=== PATIENT | female | born 1980 | race Caucasian/White ===

== ENCOUNTER 2024-07-17 15:26 | Emergency (ER) | payer OTHER, SELFPAY ==
--- OUTSIDE RECORDS SUMMARY | 2024-07-17 15:27 | XMS_ITS | Clinical Summary ---
Author Organization [facility] Address [address] [place] [id number] Care Team Providers Care Continuous Mining Operator Name Role Phone Shayy Sullivan MD Primary Care Provider [phone] Allergies No known active allergies Medications escitalopram oxalate 20 mg tabletIndicatio ns:Anxiety TAKE 1 TABLET BY MOUTH EVERY DAY 90 Tablet 5 Active escitalopram oxalate (LEXAPRO) 20 mg tabletIndicatio ns:Anxiety Take 1 Tablet (20 mg) by mouth once daily. 90 Tablet 3 4 07/09/19 25 Discontinued Active Problems Problem Noted Date Diagnosed Date Anxiety 06/13/2020 Gastroesophageal reflux disease without esophagi tis 09/13/2016 Overview (09/13/2016): EGD 09/2016 normal Papanicolaou smear of cervix with atypical squamous cells cannot exclude high grade squamous intraepithelial lesion (ASC-H) 01/24/2014 Overview (06/13/2020): 01/2014 Pap Ascus-H, plan: colp 02/08/14 [place] done-neg, per DR. Carver, pt. To have co-testing in on year, 02/201502/28/16 Reminder letter sent to pt. To schedule a repeat pap and HPV screening. 06/28/15 I spoke with pt., she states that she has had an insurance change, will not be coming back to [facility] for her care. Encounters Date Type Department Care Team Description 07/07/2024 Refill [facility] [address] [place] [address] Shayy Sullivan MD Refill Request (Escitalopram Oxalate) from Last 3 Months Immunizations Immunization Administration Dates Next Due AMB Influenza, IIV4 PF (=>6 mos Flulaval,Fluzone Fluarix)(Flu Clinic Only) 01/31/2014 Influenza A (H1N1), Inactivated 01/31/2009 Influenza, IIV3 (Age >=3 years) 04/16/2012,12/13 Influenza, IIV4 04/24/2017,01/31/2014 Tdap 05/19/2018 Family History Medical History Relation Name Comments Good Health Brother Hodgkin's lymphoma Father Good Health Mother Good Health Sister Relation Name Status Comments Brother Father Alive Mother Alive Sister Social History Tobacco Use Types Packs/Day Years Used Date Smoking Tobacco: Former Cigarettes Smokeless Tobacco: Never Tobacco Cessation:Counseling Given: Yes Comments:Smoking History Packs/day: 0.5 Alcohol Use Standard Drinks/Week Comments Not Currently 4 (1 standard drink = 0.6 oz pur e alcohol) week PHQ-2 Answer Date Recorded PHQ-2 TOTAL SCORE 0 05/01/2023 Social Connections Answer Date Recorded Frequency of Communication with Friends and Fami ly Not on file 04/07/2021 Financial Resource Strain Answer Date R ecorded Difficulty of Paying Living Expenses Not on file 04/07/2021 Difficulty of Paying Living Expenses Not on file 04/07/2021 Comments No Sex and Gender Information Value Date Recorded Sex Assigned at Not on file Legal Sex Female 6:58 AM OCCUPATIONAL HEALTH NURSE MANAGER Gender Identity Not on file Sexual Orientation Not on file Obstetrics History Last Filed Vital Signs Vital Sign Reading Time Taken Comments Blood Pressure 110/74 07/16/2023 4:05 PM CDT Pulse 83 07/16/2023 4:05 PM CDT Temperature 36.8 C (98.3 F) 07/16/2023 4:05 PM CDT Respiratory Rate 20 02/29/2020 12:52 PM OCCUPATIONAL HEALTH NURSE MANAGER Oxygen Saturation 97% 07/16/2023 4:05 PM CDT Inhaled Oxygen Concentration - - Weight 55.4 kg (122 lb 3.2 oz) 07/16/2023 4:05 P M CDT Height 161 cm (5' 3.39) 07/16/2023 4:05 PM CDT Body Mass Index 21.38 07/16/2023 4:05 PM CDT Plan of Treatment Health Maintenance Due Date Last Done Comments HIV for age 15-65 1995 Hepatitis C screening for age 18-79 1998 COVID-19 vaccine series ( season) 2023 03/26/2021 Depression screening for age 12+ 05/01/2024 05/01/2023, 12/28/2021, 08/06/2021, Additional history exists BMI (ht and wt on same day) for age 18+ 07/15/2024 07/16/2023, 02/16/2020, 01/19/2020, Additional history exists Influenza Vaccine (Season Ended) 2024 04/24/2017, 01/31/2014, 01/31/2014, Additional history exists Pap test for age 21-65 11/22/2026 2 (Verified in Care Everywhere or Patient Record), 05/19/2018 (Verified in Care Everywhere or Patient Record), 08/10/2015 (Completed outside of [facility]), Additional history exists Tetanus booster 05/19/2028 05/19/2018 Tdap Completed 05/19/2018 Pneumococcal series for age 6-49 Aged Out No longer eligible based on patient's age to complete this topic Procedures Procedure Name Priority Date/Time Associated Diagnosis Comments CLINICAL NURSE SPECIALIST THIN PREP PAP SCREEN IMAGED Routine 04/10/2012 2:53 PM OCCUPATIONAL HEALTH NURSE MANAGER Screening for malignant neoplasm of the cervix from Last 3 Months or Most Recently Relevant to Health Maintenance Results * CLINICAL NURSE SPECIALIST THIN PREP PAP SCREEN IMAGED (04/10/2012 2:53 PM OCCUPATIONAL HEALTH NURSE MANAGER) CYTOLOGY CYTOPATHOLOGY REPORT [facility] Status: Final Status [id number] CLINICAL INFORMATION Last Date of LMP :2012 Last Pap Date :4 years ago Last Pap Result :NIL ABN [place]/Bx Past 5 YRS :None Hormone Usage :BCP/OCP/Patch/Rin g Menstrual Status :Regular Periods [place]/Bx done today :No Additional Information :None given HPV Request :HPV if ASCUS SPECIMEN SOURCE :Cervical/vaginal ThinPrep Vial, screening SPECIMEN ADEQUACY :Satisfactory for evaluation Endocervical component present. INTERPRETATION/RES ULT Negative for intraepithelial lesion or malignancy (NIL) Cytology 1st Screener :sadaf Signed by :sadaf This specimen was screened by the FDA approved ThinPrep Imaging System and manually reviewed. NOTE: The Pap test is a screening technique, not a diagnostic procedure. It is used primarily to screen for squamous cancers and precursor lesions. Published studies have shown that it is subject to both false negative and false positive results. The pap test should not be used as the sole means to diagnose or exclude pre-malignant and malignant lesions. COLLECTED:04/10/12 ACCESSIONED: 04/11/12 SIGNED: 04/17/12 [facility] PAP [place] CODE NIL [facility] Tissue specimen (specimen) (Cervical/Vagina l) 04/10/2012 2:53 PM OCCUPATIONAL HEALTH NURSE MANAGER 04/10/2012 2:45 PM OCCUPATIONAL HEALTH NURSE MANAGER us Matilde LOCO PATHOLOGY/CYTOLOGY Татьяна l Result [facility] INTERNAL ZIP [id number] [place] [id number] from Last 3 Months or Most Recently Relevant to Health Maintenance Advance Directives * Full Code (Latest Code Status on File) Date Activated Date Inactivated Comments 11/01/2015 9:56 AM 11/01/2015 1:40 PM Care Teams Continuous Mining Operator Relationship Specialty Start Date End Date Shayy Sullivan MD [address] [place] [address] PCP - General Family Practice 06/08/20
[2024-07-17 15:42] VITALS: BP 117/81; PULSE 90; RESP 14; TEMP 36.9; O2SAT 97
--- NOTE | 2024-07-17 16:20 | CRLHL7_ITS ---
For Patients: As a result of the Century Cures Act, medical imaging exams and procedure reports are released immediately into your electronic medical record. You may view this report before your referring provider. If you have questions, please contact your health care provider. Indication: Periumbilical abdominal pain Technique: Volumetric multidetector CT images of the abdomen and pelvis were obtained after the administration of intravenous contrast. 58 cc Isovue 370 low osmolar intravenous contrast Comparison: None available. Findings: The lung bases are clear. The liver is normal in attenuation without intrahepatic biliary ductal dilatation. The portal vein is patent. There is a contracted appearance of the gallbladder. There is no significant common biliary ductal dilatation or abrupt cut off. The spleen is normal in enhancement and size. The stomach and duodenum are grossly unremarkable. The pancreas is normal in enhancement without significant atrophy. The adrenal glands are unremarkable. The kidneys demonstrate preserved corticomedullary differentiation without evidence of obstructive uropathy. There is extensive fluid seen within the central small bowel with mucosal hyperemia. There is marked thickening and pericolonic inflammation of the cecum, ascending colon and proximal transverse colon. The appendix is unremarkable. There is no significant mesenteric, retroperitoneal, or pelvic sidewall lymph nodes. The aorta is nonaneurysmal. There is no significant atherosclerotic disease appreciated. There is an IUD in satisfactory position. There is minimal reactive fluid tracking along the right pericolic gutter. The anterior abdominal wall is intact without significant hernias. The lumbar vertebral body heights are grossly maintained with small disc protrusions at the L3-L4 and L4-L5 levels. Impression: 1. Marked thickening and pericolonic inflammatory change of the cecum, ascending colon and proximal transverse colon with minimal fluid tracking along the pericolic gutter and moderate fluid distention of the mid small bowel likely representing developing infectious or inflammatory enterocolitis. 2. Normal appendix. Please note that all CT scans at this facility use dose modulation, iterative reconstruction, and/or weight-based dosing when appropriate to reduce radiation dose to as low as reasonably achievable. Dictated by Julio Johnson MD @ 07/17/2024 5:36:32 PM (Electronically Signed)
[2024-07-17 16:23] LABS: Appearance Urine Clear (Clear); Bilirubin Urine Negative (Negative); Blood Urine Negative (Negative); Color Urine Yellow (Yellow); Glucose Urine Negative (Negative); Ketones Urine Negative (Negative); Leukocyte Esterase Urine Negative (Negative); Nitrite Urine Negative (Negative); Protein Urine Negative (Negative); Urobilinogen Urine 0.2 (0.2-1.0); pH Urine 6.5 (5.0-8.5)
--- NOTE | 2024-07-17 16:23 | ED.ABDPAIN ---
HPI - Abdominal Pain General Date Seen: 07/17/24 Chief Complaint: Abdominal Pain Stated Complaint: Potential Hernia Time Seen by Provider: 07/17/24 16:04 Source: patient Mode of arrival: ambulatory Limitations: no limitations History of Present Illness HPI narrative: Patient is a 44-year-old female with no pertinent medical problems presenting to the emergency department for abdominal pain. She states she 1st noticed symptoms a couple days ago and she at that time had some diarrhea and a fever. The fever has since resolved and she has had no further diarrhea. She continues to have abdominal cramping worsening periumbilical and lower abdomen but seems to be quite diffuse she states. Has not had any previous abdominal surgeries. Has also noticed a bulge that comes in and out right above her umbilicus. She was concerned this could be a hernia causing her symptoms. Is not aware of any sick contacts. Has not had any nausea, chest pain, shortness of breath, constipation, dysuria, vaginal bleeding, vaginal discharge, nausea, headache, lightheadedness, dizziness. She states she has no other symptoms other than the abdominal cramping at this time. Related Data Home Medications ?Medication ?Instructions ?Recorded ?Confirmed digestive enzymes PO 07/17/24 escitalopram oxalate 20 mg tablet 20 mg PO DAILY 07/17/24 07/17/24 Allergies Allergy/AdvReac Type Severity Reaction Status Date / Time No Known Drug Allergies Allergy Verified 07/17/24 15:42 Review of Systems Status of ROS Reports: 10 or more systems reviewed and unremarkable except as noted in History and below Exam Narrative: Exam Narrative: Const: Well-nourished, Well-developed, in mild distress Eyes: PERRL, no conjunctival injection, and symmetrical lids HENT: Atraumatic external nose and ears. Moist mucous membranes. Neck: Symmetric, trachea midline, No thyromegaly. CVS: RRR, No murmurs or gallops. Peripheral pulses 2+ and equal in all extremities RESP: Unlabored respiratory effort. Clear to auscultation bilaterally. GI: Mild periumbilical right lower quadrant tenderness, Nondistended, No rebound or guarding. no palpable hernia noted MSK:Extremities w/o deformity, Normal Active ROM Skin: Warm, Dry. No rashes or lesions. Neuro: Normal Muscle tone, No focal neurological deficits. Psych: Awake, Alert, & Oriented x3. Appropriate mood and affect. Const: Vital Signs, click to edit/add: Vital Signs - 24 hr 07/17/24 15:42 Temperature 98.4 F Pulse Rate [Pulse Oximeter] 90 Respiratory Rate 14 Blood Pressure [Ri ght Upper Arm] 117/81 Pulse Oximetry 97 Oxygen Delivery Me thod Room Air Course Vital Signs Vital signs: Initial Vital Signs Temperature 98.4 F 07/17/24 15:42 Temperature Source Temporal Artery Scan 07/17/24 15:42 Pulse Rate 90 07/17/24 15:42 Respiratory Rate 14 07/17/24 15:42 Blood Pressure 117/81 07/17/24 15:42 Blood Pressure Mean 93 07/17/24 15:42 Blood Pressure Position Sitting 07/17/24 15:42 Pulse Oximetry 97 07/17/24 15:42 Oxygen Delivery Method Room Air 07/17/24 15:42 Vital Signs Temperature 98.4 F 07/17/24 15:42 Pulse Rate 90 07/17/24 15:42 Respiratory Rate 14 07/17/24 15:42 Blood Pressure 117/81 07/17/24 15:42 Pulse Oximetry 97 07/17/24 15:42 Oxygen Delivery Method Room Air 07/17/24 15:42 Temperature 98.4 F 07/17/24 15:42 Pulse Rate 90 07/17/24 15:42 Respiratory Rate 14 07/17/24 15:42 Blood Pressure 117/81 07/17/24 15:42 Pulse Oximetry 97 07/17/24 15:42 Oxygen Delivery Method Room Air 07/17/24 15:42 MDM - Abdominal Pain MDM Narrative Medical decision making narrative: patient is a 44-year-old female presenting to the emergency department for abdominal pain and cramping. Location the worst of the pain make the most concern for appendicitis but will also check for gallbladder liver disease, pancreatitis. Will do CT scan to better evaluate everything. She does not want anything for pain or nausea at this time. Does not appear to be dehydrated. Will check a CBC, CMP, COVID/flu / RSV, lipase, urinalysis. A not feel any palpable hernias at this time but it does seem like she could have a ventral hernia. She is she then so is less likely to get these hernias but she does state she has been doing a lot of core exercises recently which could cause 1. No signs of any strangulation or incarceration. Patient's lab work shows no concerning abnormalities. CT scan shows signs of infection and or inflammatory enterocolitis. No other concerning abnormalities. This seems consistent with the patient's symptoms. Most likely infectious. This is typically viral and does not require antibiotics. I informed her that if the symptoms continue to persist it may be reasonable to follow-up with her primary care provider for possible colonoscopy scheduling. She states she understands. Lab Data Labs: Lab Results 07/17/24 07/17/24 Range/Units 16:14 16:25 WBC 8.60 (4.50-11.00) K/uL RBC 4.16 (4.00-5.20) m/uL Hgb 12.7 (12.0-16.0) gm/dL Hct 38.0 (33.0-51.0) % MCV 91 (80-100) fL MCH 31 (26-34) pg MCHC 33 (32-36) gm/dL RDW Coeff of Cory 11.8 (11.5-15.5) % Plt Count 306 (140-440) K/uL Neut % (Auto) 61.7 (42.0-72.0) % Lymph % (Auto) 26.7 (20-44) % [place] % (Auto) 9.0 (0.0-11.0) % Eos % (Auto) 2.2 (0.0-7.0) % Baso % (Auto) 0.3 (0.0-3.0) % Neut # (Auto) 5.30 (1.7-7.0) K/uL Lymph # (Auto) 2.30 (0.90-2.90) K/uL [place] # (Auto) 0.80 (0.00-0.90) K/UL Eos # (Auto) 0.19 (0.00-0.50) K/uL Baso # (Auto) 0.03 (0.00-0.30) K/uL Abs Immat Gran (auto) 0.01 (0.00-0.30) K/uL Imm/Tot Granulo (auto) 0.1 % Sodium 139 (135-149) mmol/L Potassium 4.0 (3.6-5.1) mmol/L Chloride 102 (96-114) mmol/L Carbon Dioxide 29 (20-32) mmol/L Anion Gap 8 (7-15) mEq/L BUN 16 (5-24) mg/dL Creatinine 0.9 (0.5-1.5) mg/dL Estimated GFR 81 ml/min Glucose 90 (60-115) mg/dL Calcium 9.7 (8.4-10.6) mg/dL Total Bilirubin 0.3 (0.1-1.5) mg/dL AST 30 (12-35) U/L ALT 23 (4-35) U/L Alkaline Phosphatase 48 (40-150) U/L Total Protein 7.6 (6.0-8.3) g/dL Albumin 4.5 (3.3-5.0) g/dL Lipase 75 (23-300) U/L Urine Color Yellow (Yellow) Urine Appearance Clear (Clear) Urine pH 6.5 (5.0-8.5) Ur Specific Gratis 1.010 (1.000-1.030) Urine Protein Negative (Negative) Urine Glucose (UA) Negative (Negative) Urine Ketones Negative (Negative) Urine Blood Negative (Negative) Urine Nitrite Negative (Negative) Urine Bilirubin Negative (Negative) Urine Urobilinogen 0.2 (0.2-1.0) Ur Leukocyte Esterase Negative (Negative) Urine HCG, Qual Negative (Negative) SARS-CoV-2 (PCR) Negative SARS-CoV-2 (Negative) Influenza Type A (PCR) Negative PCR FLU A (Negative) Influenza Type B (PCR) Negative PCR FLU B (Negative) RSV (PCR) Negative PCR RSV (Negative) Imaging Data CT scan abdomen pelvis: Attestation: I have reviewed the pertinent imaging results. Radiologist's impression: 1. Marked thickening and pericolonic inflammatory change of the cecum, ascending colon and proximal transverse colon with minimal fluid tracking along the pericolic gutter and moderate fluid distention of the mid small bowel likely representing developing infectious or inflammatory enterocolitis. 2. Normal appendix. Please note that all CT scans at this facility use dose modulation, iterative reconstruction, and/or weight-based dosing when appropriate to reduce radiation dose to as low as reasonably achievable. Dictated by Juloi Johnson MD @ 07/17/2024 5:36:32 PM Discharge Plan Discharge Clinical Impression: Enterocolitis Patient Disposition: Home, Self-Care Condition: Stable Instructions: Colitis (ED) Additional Instructions: your symptoms are likely viral infection. They should resolve on their own. Although symptoms do persist for another week it may be reasonable to follow-up with your primary care provider to speak about possibly scheduling a colonoscopy. Return to emergency department for new or worsening symptoms. Prescriptions: No Action escitalopram oxalate 20 mg tablet 20 mg PO DAILY digestive enzymes PO Follow Up/Referrals: Swati Wilder DO [Staff Physician] - Stand Alone Forms: [employer] Info Instructions
[2024-07-17 16:27] LABS: Ur HCG Qualitative* Negative (Negative)
[2024-07-17 16:59] LABS: Albumin* 4.5 g/dL (3.3-5.0); Chloride* 102 mmol/L (96-114); Sodium* 139 mmol/L (135-149)
[2024-07-17 17:02] LABS: Alanine Aminotransferase* 23 U/L (4-35); Alkaline Phosphatase* 48 U/L (40-150); Anion Gap 8 mEq/L (7-15); Aspartate Amino Transferase* 30 U/L (12-35); Bilirubin Total* 0.3 mg/dL (0.1-1.5); Blood Urea Nitrogen* 16 mg/dL (5-24); Carbon Dioxide* 29 mmol/L (20-32); Creatinine* 0.9 mg/dL (0.5-1.5); Estimated Glomerular Filt Rate 81 ml/min; Lipase* 75 U/L (23-300); Total Protein* 7.6 g/dL (6.0-8.3)
[2024-07-17 17:03] LABS: Calcium* 9.7 mg/dL (8.4-10.6); Glucose* 90 mg/dL (60-115)
[2024-07-17 17:07] LABS: Basophils Absolute Auto 0.03 K/uL (0.00-0.30); Basophils Percent Auto 0.3 % (0.0-3.0); Eosinophils Absolute Auto 0.19 K/uL (0.00-0.50); Eosinophils Percent Auto 2.2 % (0.0-7.0); Hemoglobin* 12.7 gm/dL (12.0-16.0); Immature Granulocytes Abs Auto 0.01 K/uL (0.00-0.30); Immature Granulocytes Pct Auto 0.1 %; Lymphocytes Percent Auto 26.7 % (20-44); Mean Corpuscular HGB Conc 33 gm/dL (32-36); Mean Corpuscular Hemoglobin 31 pg (26-34); Mean Corpuscular Volume 91 fL (80-100); Neutrophils Percent Auto 61.7 % (42.0-72.0); Platelet Count* 306 K/uL (140-440); RDW Coefficient of Variation % 11.8 % (11.5-15.5); Red Blood Count 4.16 m/uL (4.00-5.20)
[2024-07-17 17:10] LABS: Slide Review Reflex No
--- OUTSIDE RECORDS SUMMARY | 2024-07-17 17:21 | XMS_ITS | Clinical Summary ---
Author Organization [facility] Address [address] [place] [id number] Care Team Providers Care Batterboard Setter Name Role Phone Shayy Sullivan MD Primary Care Provider [phone] Allergies No known active allergies Medications escitalopram [...] (06/13/2020): 01/2014 Pap Ascus-H, plan: colp 02/08/14 [place] done-neg, per DR. Carver, pt. To have co-testing in on year, 02/201502/28/16 Reminder letter sent to pt. To schedule a repeat pap and HPV screening. 06/28/15 I spoke with pt., she states that she has had an insurance change, will not be coming back to [facility] for her care. Encounters Date Type Department Care Team Description 07/07/2024 Refill [facility] [address] [place] [address] Shayy Sullivan MD Refill Request (Escitalopram Oxalate) [...] on file Legal Sex Female 6:58 AM PERFORMING ARTIST Gender Identity Not on file Sexual Orientation Not on file Obstetrics History Last Filed Vital Signs Vital Sign Reading Time Taken Comments Blood Pressure 110/74 07/16/2023 4:05 PM CDT Pulse 83 07/16/2023 4:05 PM CDT Temperature 36.8 C (98.3 F) 07/16/2023 4:05 PM CDT Respiratory Rate 20 02/29/2020 12:52 PM PERFORMING ARTIST Oxygen Saturation 97% 07/16/2023 4:05 PM CDT [...] or Patient Record), 08/10/2015 (Completed outside of [facility]), Additional history exists Tetanus booster 05/19/2028 05/19/2018 Tdap Completed 05/19/2018 Pneumococcal series for age 6-49 Aged Out No longer eligible based on patient's age to complete this topic Procedures Procedure Name Priority Date/Time Associated Diagnosis Comments DIRECTOR DAY CARE CENTER THIN PREP PAP SCREEN IMAGED Routine 04/10/2012 2:53 PM PERFORMING ARTIST Screening for malignant neoplasm of the cervix from Last 3 Months or Most Recently Relevant to Health Maintenance Results * DIRECTOR DAY CARE CENTER THIN PREP PAP SCREEN IMAGED (04/10/2012 2:53 PM PERFORMING ARTIST) CYTOLOGY CYTOPATHOLOGY REPORT [facility] Status: Final Status [id number] CLINICAL INFORMATION Last Date of LMP :2012 Last Pap Date :4 years ago Last Pap Result :NIL ABN [place]/Bx Past 5 YRS :None Hormone Usage :BCP/OCP/Patch/Rin g Menstrual Status :Regular Periods [place]/Bx done today :No Additional Information :None given [...] malignant lesions. COLLECTED:04/10/12 ACCESSIONED: 04/11/12 SIGNED: 04/17/12 [facility] PAP [place] CODE NIL [facility] Tissue specimen (specimen) (Cervical/Vagina l) 04/10/2012 2:53 PM PERFORMING ARTIST 04/10/2012 2:45 PM PERFORMING ARTIST us Matilde LOCO PATHOLOGY/CYTOLOGY Татьяна l Result [facility] INTERNAL ZIP [id number] [place] [phone] from Last 3 Months or Most Recently Relevant to Health Maintenance Advance Directives * Full Code (Latest Code Status on File) Date Activated Date Inactivated Comments 11/01/2015 9:56 AM 11/01/2015 1:40 PM Care Teams Batterboard Setter Relationship Specialty Start Date End Date Shayy Sullivan MD [address] [place] [address] PCP - General Family Practice 06/08/20
[2024-07-17 17:34] LABS: PCR FLU A Negative PCR FLU A (Negative); PCR FLU B Negative PCR FLU B (Negative); PCR RSV Negative PCR RSV (Negative); SARS PCR* Negative SARS-CoV-2 (Negative)
[2024-07-17 17:45] VITALS: BP 116/88; PULSE 86; O2SAT 100
== END 2024-07-17 17:56 | disposition home or self-care (01) ==
PROVIDERS: Emergency Provider Student in an Organized Health Care Education/Training Program
DX: K52.9 Noninfective gastroenteritis and colitis, unspecified (principal)
CPT/HCPCS: 36415; 74177; 80053; 81003; 81025; 83690; 85025; 87631; 99283; 99284; 99285; Q9967